=== PATIENT | male | born 1960 | race Two or more races ===

== ENCOUNTER 2016-09-21 10:11 | Day surgery (SDC) | payer BC ==
[~2016-09-21] VITALS: Ht 172.7 cm; Wt 74.8 kg
--- NOTE | 2016-09-21 10:15 | Anethesia Preoperative Eval ---
Anesthesia Pre-op PMH/ROS General Date of Evaluation: September 21, 2016 Anesthesiologist: Colton ASA Score: ASA 2 Mallampati Score Class I : Soft palate, uvula, fauces, pillars visible Class II: Soft palate, uvula, fauces visible Class III: Soft palate, base of uvula visible Class IV: Only hard plate visible Mallampati Classification: Class II Surgeon: Anil Diagnosis: Scalp sebacious cyst x2 Surgical Procedure: excision scalp cysts Anesthesia History: none Family History: no anesthesia problems Allergies: Coded Allergies: No Known Allergies (Unverified , 09/21/16) Past Medical History Cardiovascular: Reports: HTN, Denies: CAD, AR, arrhythmia, other, valve dz Pulmonary: Denies: COPD, DYLAN, asthma, other Gastrointestinal/Genitourinary: Denies: CRI, ESRD, GERD, other Neurologic/Psychiatric: Denies: CVA, TIA, dementia, depression/anxiety, other Endocrine: Denies: DM, hypothyroidism, other, steroids HEENT: Denies: [place] (L), [place] (R), cataract (L), cataract (R), glaucoma, other Hematology/Immune: Denies: DVT, anemia, bleeding disorder, other Musculoskeletal/Integumentary: Denies: DDD, DJD, OA, RA, edema, other PSxH Narrative: Denies Anesthesia Pre-op Phys. Exam Physician Exam see chart Constitutional: NAD Cardiovascular: RRR Respiratory: CTA Airway Exam Mallampati Score: Class II MO: full ROM: full Teeth: intact Anesthesia Pre-op A/P Labs see chart Studies Pre-op Studies: EKG - sr Risk Assessment & Plan Assessment: ASA II Plan: MAC Status Change Before Surgery: No Pre-Antibiotics Drug: Keflex PO Given Within 1 Hr of Incision: SHABBIR Mora M.D. September 21, 2016 10:15
[2016-09-21] MEDS ORDERED: Lidocaine 1% 10mg/ml/Epi 0.005mg/ml 30ml vial INJ ONE (10:22)
--- NOTE | 2016-09-21 10:34 | Pre-Procedure Note/Attestation ---
Pre-Procedure Note/Attestation Complete Prior to Procedure Planned Procedure: bilateral Procedure Narrative: excision of two masses of posterior scalp Indications for Procedure Pre-Operative Diagnosis: two scalp masses Attestation I attest that I discussed the nature of the procedure; its benefits; risks and complications; and alternatives (and the risks and benefits of such alternatives ), prior to the procedure, with the patient (or the patient's legal escrow representative). I attest that, if there was a reasonable possibility of needing a blood transfusion, the patient (or the patient's legal escrow representative) was given the [facility] standardized written summary, pursuant to the Darian Josue Blood Safety Act ([place] Health and Safety Code # 1645, as amended). I attest that I re-evaluated the patient just prior to the surgery and that there has been no change in the patient's H&P, except as documented below: Patrick Ma MD September 21, 2016 10:34
[2016-09-21 10:50] VITALS: BP 123/71
[2016-09-21] MEDS ORDERED: Lidocaine 2% 20mg/ml/Epi 0.005mg/ml 20ml vial ONE (11:23)
[2016-09-21] MEDS ORDERED: Bacitracin Oint 15gm Tube TOPIC ONE (11:49)
--- NOTE | 2016-09-21 13:29 | Immediate Post-Op Evaluation ---
Immediate Post-Op Evalulation Immediate Post-Op Evalulation Procedure: Excision scalp cysts X2 Date of Evaluation: September 21, 2016 Time of Evaluation: 10:50 IV Fluids: 0 Blood Products: 0 Estimated Blood Loss: min Urinary Output: 0 Blood Pressure Systolic: 123 Blood Pressure Diastolic: 71 Pulse Rate: 62 Respiratory Rate: 18 O2 Sat by Pulse Oximetry: 97 Temperature (Fahrenheit): 98.8 Pain Score (1-10): 0 Nausea: No Vomiting: No Complications 0 Patient Status: awake, reacts, patent, none Hydration Status: adequate Drug: Keflex Given Within 1 Hr of Incision: SHABBIR Mora M.D. September 21, 2016 13:29
[2016-09-22 06:49] VITALS: BP 123/71
--- NOTE | 2016-09-22 06:49 | 48 Hour Post Anesthesia Eval ---
Post Anesthesia Evaluation Procedure: Excision scalp cysts X2 Date of Evaluation: September 22, 2016 Time of Evaluation: 13:30 Blood Pressure Systolic: 123 0: 71 Pulse Rate: 62 Respiratory Rate: 18 Temperature (Fahrenheit): 98.8 O2 Sat by Pulse Oximetry: 97 Airway: patent Nausea: No Vomiting: No Pain Intensity: 0 Hydration Status: adequate Cardiopulmonary Status: at baseline Mental Status/LOC: patient returned to baseline Post-Anesthesia Complications: 0 Follow-up care needed: ready to discharge SHABBIR AGUILAR M.D. September 22, 2016 06:49
--- NOTE | 2016-09-23 00:39 | Operative Note - Dictated ---
DATE OF OPERATION: 09/21/2016 PREOPERATIVE DIAGNOSIS: Two fairly large cysts very firm in the back of the head, which could be a lipoma also. They were also painful. POSTOPERATIVE DIAGNOSIS: Bilateral lipomas. Procedure In Detail: The patient understood the risks, complications, and alternative methods of treatment, and consented with realistic expectations to undergo the excisional biopsy of those two painful lipomas. The patient was prepped with a prepping solution from the hospital. It was not Betadine, it was some other prep I think it was Hibiclens and then was injected with 1% Xylocaine, 1:200,000 epinephrine. The 15 blade was used to excise the areas and there were two horizontal incisions each were placed around the mass. The Allis clamp was used to grab the center and then the 15 blade was used to dissect around the mass and then underneath on to the fascia overlying the scalp. Both specimens were excised and areas were cauterized using a Mitchell needle and a 0 silk suture was placed to approximate the edges on both cysts. Each cyst was approximately I would say almost 3 cm in size with the cyst more towards the top of the head maybe a little bit longer and little bit wider. The patient was then transferred to the postop recovery facility in satisfactory condition. Patrick Ma M.D. DR: ERAN JOB#: [id number] CC:
== END 2016-09-21 12:10 | disposition home or self-care (01) ==
LOC: SUR 10:11
DX: L72.12 Trichodermal cyst (principal); L72.11 Pilar cyst; I10 Essential (primary) hypertension
CPT/HCPCS: 94003; 94150

== ENCOUNTER 2017-01-11 06:22 | Day surgery (SDC) | payer BC ==
[2017-01-11] VITALS (10 sets, daily range): BP systolic 118–149; BP diastolic 56–87
[~2017-01-11] VITALS: Ht 172.7 cm; Wt 74.8 kg
[2017-01-11] MEDS ORDERED: AFRIN NASAL SPR30 ML NASAL (06:59)
[2017-01-11] MEDS ORDERED: LR 1000ml 1,000 ML IVLG SCH ×2 (07:00→08:28)
[2017-01-11] MEDS ORDERED: fentaNYL 100 mcg/2 mL IV ONE (08:00)
[2017-01-11] MEDS ORDERED: Midazolam 2mg/2ml Inj ONE (08:00)
[2017-01-11] MEDS ORDERED: Propofol 10mg/ml 20ml IV ONE (08:00)
[2017-01-11] MEDS ORDERED: LR 1000ml ONE (08:00)
--- NOTE | 2017-01-11 08:01 | Short Stay Surgery H&P ---
History of Present Illness History of Present Illness Chief Complaint see H&P HPI Kevin Sr is a 56 year old male who was admitted on for Gerd, Diarrhea Patient History Allergies: Coded Allergies: SULFA (SULFONAMIDE ANTIBIOTICS) (Verified Allergy, Unknown, 01/11/17) PAST MEDICAL HISTORY: Past Surgeries: Social History: Medication History Scheduled Oxymetazoline HCl (Afrin), 2 SPRAY NASAL ONCE, (Reported) Physical Exam Vital Signs Last Vital Signs Date Time Temp Pulse Resp B/P (MAP) Pulse Ox O2 Delivery O2 Flow Rate FiO2 01/11/17 06:53 97.0 54 18 118/78 97 Room Air Plan Attestation Are the patient's medical conditions optimized for surgery? JAQUELINE BUCKNER Jan 11, 2017 08:01
--- NOTE | 2017-01-11 08:02 | Pre-Procedure Note/Attestation ---
Pre-Procedure Note/Attestation Complete Prior to Procedure Planned Procedure: not applicable Procedure Narrative: EGD/Colon Indications for Procedure Pre-Operative Diagnosis: diarrhea, gerd Attestation I attest that I discussed the nature of the procedure; its benefits; risks and complications; and alternatives (and the risks and benefits of such alternatives ), prior to the procedure, with the patient (or the patient's legal front desk representative). I attest that, if there was a reasonable possibility of needing a blood transfusion, the patient (or the patient's legal front desk representative) was given the [facility] standardized written summary, pursuant to the Darian Josue Blood Safety Act ([place] Health and Safety Code # 1645, as amended). I attest that I re-evaluated the patient just prior to the surgery and that there has been no change in the patient's H&P, except as documented below: JAQUELINE BUCKNER Jan 11, 2017 08:02
--- NOTE | 2017-01-11 08:28 | Anethesia Preoperative Eval ---
Anesthesia Pre-op PMH/ROS General Date of Evaluation: Jan 11, 2017 Time of Evaluation: 07:58 Anesthesiologist: Kedar ASA Score: ASA 2 Mallampati Score Class I : Soft palate, uvula, fauces, pillars visible Class II: Soft palate, uvula, fauces visible Class III: Soft palate, base of uvula visible Class IV: Only hard plate visible Mallampati Classification: Class II Surgeon: Venu Diagnosis: Abdominal pain Surgical Procedure: EGD Colonocopy Anesthesia History: none Family History: no anesthesia problems Allergies: Coded Allergies: SULFA (SULFONAMIDE ANTIBIOTICS) (Verified Allergy, Unknown, 01/11/17) Medications: see eMAR Past Medical History Cardiovascular: Denies: HTN, CAD, ND, valve dz, arrhythmia, other Pulmonary: Reports: DYLAN, Denies: asthma, COPD, other Gastrointestinal/Genitourinary: Reports: GERD, other - chronic diarrhea, Denies: CRI, ESRD Neurologic/Psychiatric: Reports: depression/anxiety, Denies: dementia, CVA, TIA, other Endocrine: Denies: DM, hypothyroidism, steroids, other HEENT: Denies: cataract (L), cataract (R), glaucoma, [place] (L), [place] (R), other Hematology/Immune: Denies: anemia, DVT, bleeding disorder, other Musculoskeletal/Integumentary: Denies: OA, RA, DJD, DDD, edema, other PMH Narrative: as above PSxH Narrative: see chart Anesthesia Pre-op Phys. Exam Physician Exam Last Vital Signs Date Time Temp Pulse Resp B/P (MAP) Pulse Ox O2 Delivery O2 Flow Rate FiO2 01/11/17 06:53 97.0 54 18 118/78 97 Room Air Constitutional: NAD Neurologic: CN 2-12 intact Cardiovascular: RRR, no M/R/G Respiratory: CTA Gastrointestinal: S/NT/ND Airway Exam Mallampati Score: Class II MO: limited Neck: stiff ROM: limited Teeth: intact Dentures: no upper, no lower Anesthesia Pre-op A/P Labs see chart Risk Assessment & Plan Assessment: ASA 2 Plan: MAC Status Change Before Surgery: No Pre-Antibiotics Drug: none WILLIAM SCHWARTZ M.D. Jan 11, 2017 08:28
[2017-01-11] MEDS ORDERED: DiphenhydrAMINE 50mg/ml Inj IVP PRN (08:30)
[2017-01-11] MEDS ORDERED: Midazolam 2mg/2ml Inj IVP PRN (08:30)
[2017-01-11] MEDS ORDERED: Meperidine 25mg/0.5ml Inj (FOR RIGORS ONLY) IV PRN (08:30)
[2017-01-11] MEDS ORDERED: NS 550ML IV ONE (09:00)
--- NOTE | 2017-01-11 09:58 | Immediate Post-Op Evaluation ---
Immediate Post-Op Evalulation Immediate Post-Op Evalulation Procedure: EGD Colonoscopy Date of Evaluation: Jan 11, 2017 Time of Evaluation: 09:54 IV Fluids: 1200 Blood Products: none Estimated Blood Loss: none Urinary Output: none Blood Pressure Systolic: 116 Blood Pressure Diastolic: 58 Pulse Rate: 62 Respiratory Rate: 20 O2 Sat by Pulse Oximetry: 99 Temperature (Fahrenheit): 97.6 Pain Score (1-10): 2 Nausea: No Vomiting: No Complications after the procedure patient agitated,delirious, complaining on severe abdominal pain to rule out perforation X-Ray of the abdomen performed , no evidence of free air in the abdomen, calm down, oriented, was able to pass gas, rectal tube placed by GI . Moved to PACU in satisfactory condition. Patient Status: awake Hydration Status: adequate WILLIAM SCHWARTZ M.D. Jan 11, 2017 09:58
--- NOTE | 2017-01-11 10:33 | Diagnostic Imaging Report ---
Indication: Abdominal pain Comparison: None Two-view abdomen obtained Findings: There is no definite free air identified on the 2 views. Colon is mildly distended with air. There are multiple loops of air-filled small bowel noted as well. Bones are unremarkable. Impression: No acute findings. No free air identified on this study.
--- NOTE | 2017-01-11 11:01 | Endoscopy Procedure Note ---
Endoscopy Procedure Note Indication for Procedure: GERD, diarrhea Procedures Performed: EGD, colonoscopy Operative Findings/Diagnosis: mild diverticulosis, mild proctitis Specimen: yes Pt Tolerated Procedure Well: Yes Estimated Blood Loss: none Anesthesiologist: see list Anesthesia: MAC Medication Given: see anesthesia record Implant(s) used?: No 50 yrs or older w/o bx or poly: No 10yrs. F/U not recommended: Yes If not recommended, why?: 10 yrs. F/U needed: Yes 18 years or older w/prev. colo: Yes <3yrs. since last colonoscopy: No Med reason:<3 yrs.: System Reason:<3 yrs.: Last colonoscopy >= to 3yrs: Yes JAQUELINE BUCKNER Jan 11, 2017 11:01
--- NOTE | 2017-01-11 11:07 | 48 Hour Post Anesthesia Eval ---
Post Anesthesia Evaluation Procedure: EGD Colonoscopy Date of Evaluation: Jan 11, 2017 Time of Evaluation: 11:05 Blood Pressure Systolic: 132 0: 56 Pulse Rate: 48 Respiratory Rate: 20 Temperature (Fahrenheit): 97.6 O2 Sat by Pulse Oximetry: 98 Airway: patent Nausea: No Vomiting: No Pain Intensity: 2 Hydration Status: adequate Cardiopulmonary Status: stable Mental Status/LOC: patient returned to baseline Follow-up Care/Observations: n/a Post-Anesthesia Complications: none Follow-up care needed: ready to discharge WILLIAM SCHWARTZ M.D. Jan 11, 2017 11:06
--- NOTE | 2017-01-11 23:30 | Procedure Note ---
DATE OF PROCEDURE: 01/11/2017 GASTROENTEROLOGY PROCEDURE PROCEDURE: Upper gastrointestinal endoscopy with biopsy as well as colonoscopy with biopsy. SURGEON: Tamika Saab M.D. ANESTHESIA: Please see the separate anesthesiologist's notes for details. PRE-ENDOSCOPIC DIAGNOSES: 1. Refractory symptoms and gastroesophageal reflux disease. 2. Chronic diarrhea, rule out inflammatory bowel disease. POST-ENDOSCOPIC DIAGNOSES: 1. Normal upper endoscopy, status post multiple random biopsies. 2. Mild sigmoid diverticulosis. 3. Small shallow erosions versus ulcer in the rectum suggestive of possible proctitis, status post biopsy. 4. Status post random biopsies of the colon as well as terminal ileum. DESCRIPTION OF PROCEDURE: The procedure and its risks, indications, alternatives, and possible complications including but not limited to bleeding, infection, perforation, , and anesthesia complications were explained to the patient and informed consent was obtained. Time-out was announced and the patient was sedated in the left lateral decubitus position. A diagnostic upper endoscope was introduced into the oropharynx and advanced to the duodenum without difficulty. The endoscope was gradually withdrawn and the mucosa was examined carefully. Examination of the upper gastrointestinal mucosa did not reveal any visual abnormalities. Random biopsies of the duodenum, antrum, lower esophagus, and mid esophagus were sent to pathology for review. Thereafter, the endoscope was removed. The patient was turned around and rectal exam was done which was unremarkable. The colonoscope was then introduced into the rectum and advanced to the terminal ileum. Views of the terminal ileum were obtained for about 16 cm into the terminal ileum. The colonoscope was then gradually withdrawn and mucosa examined carefully. The terminal ileal mucosa was normal as well as most of the colonic mucosa. In the distal sigmoid colon, there were a few diverticuli identified. In the rectum, there was a shallow erosion of unclear significance. The remainder of the rectum appeared normal. Biopsies of this area were sent to pathology for review. Biopsies of the terminal ileum, the right colon, and left colon were also sent to pathology for review. The colonoscope was removed. Once the anesthesia wore off, the patient complained of significant abdominal distention and cramping. A two-view KUB of the abdomen was obtained showing gaseous distention of the distal small bowel and colon and no free air or perforation. The patient was taken to the bathroom where he passed some gas and subsequently to the recovery where he passed more gas and by the end of recovery, the patient felt well, had no pain, no cramps, and was at his baseline. He was discharged home in stable condition. RECOMMENDATIONS: 1. Follow up biopsy results. 2. Outpatient followup. Tamika Saab M.D. DR: MALA JOB#: [id number] CC: MATIAS
== END 2017-01-11 12:20 | disposition home or self-care (01) ==
LOC: GAS 06:22
DX: K21.9 Gastro-esophageal reflux disease without esophagitis (principal); R19.7 Diarrhea, unspecified; Z88.2 Allergy status to sulfonamides; K57.90 Diverticulosis of intestine, part unspecified, without perforation or abscess without bleeding; K62.89 Other specified diseases of anus and rectum; K29.50 Unspecified chronic gastritis without bleeding; K62.3 Rectal prolapse; G47.33 Obstructive sleep apnea (adult) (pediatric); F32.9 Major depressive disorder, single episode, unspecified; F41.9 Anxiety disorder, unspecified
CPT/HCPCS: 43239; 45380; 74020; J2250; J2704; J3010; J7040; J7120; 94003; 94150